=== PATIENT | male | born 1980 | race Caucasian/White ===

== ENCOUNTER 2017-06-25 22:24 | Emergency (ER) | payer OTHER ==
[~2017-06-25] VITALS: Ht 167.6 cm; Wt 81.0 kg
[~2017-06-25 22:24] MED LIST: GLUC500C3 PO; HYDR-3111 PO
[2017-06-25 22:51] VITALS: BP 186/101; PULSE 104; RESP 21; TEMP 98.3; O2SAT 98
--- NOTE | 2017-06-26 00:08 | PD ---
HPI Chief Complaint: Medical Clearance Time Seen by Provider: 23:59 Travel History International Travel<30 days: No Contact w/Intl Traveler<30days: No Traveled to known affect area: No History of Present Illness HPI 37-year-old male brought here by PD under [employer] act. According to the act the patient was extremely intoxicated and unable to care for himself. He is from out of town and was contacted by law enforcement as a passenger in a vehicle. The other occupant was arrested. The patient states that he and his dad were in a vehicle that was parked outside of a house. He admits that they did have some alcoholic beverages this evening because they had just closed on a property and were celebrating. On my assessment the patient states he feels well. No physical complaints. He is awake and alert and oriented to person place and time. PFSH Past Medical History Diminished Hearing: No Gout: Yes Hypertension: Yes Musculoskeletal: Yes (CHRONIC BACK PAIN) Influenza Vaccination: No Past Surgical History Surgical History: No Previous Surgery Social History Alcohol Use: Yes ("A LOT" ) Tobacco Use: No Substance Use: No Allergies-Medications (Allergen,Severity, Reaction): Coded Allergies: No Known Allergies (Unverified , 08/16/14) Reported Meds & Prescriptions Reported Meds & Active Scripts Active Reported Glucosamine (Glucosamine Sulfate) 500 Mg Cap 1,500 Mg PO DAILY Vicodin 5/300 (Hydrocodone/Acetaminophen 5/300) 5 Mg/300 Mg Tab 1 Tab PO Q4H PRN Review of Systems Except as stated in HPI: all other systems reviewed are Neg Physical Exam Narrative GENERAL: Well-developed, well-nourished, awake, alert, pleasant, no apparent distress. SKIN: Focused skin assessment warm/dry. HEAD: Atraumatic. Normocephalic. EYES: Pupils equal and round. No scleral icterus. No injection or drainage. ENT: No nasal bleeding or discharge. Mucous membranes pink and moist. NECK: Trachea midline. No JVD. CARDIOVASCULAR: Regular rate and rhythm. RESPIRATORY: No accessory muscle use. Clear to auscultation. Breath sounds equal bilaterally. GASTROINTESTINAL: Abdomen soft, non-tender, nondistended. Hepatic and splenic margins not palpable. MUSCULOSKELETAL: No obvious deformities. No clubbing. No cyanosis. No edema. NEUROLOGICAL: Awake and alert. No obvious cranial nerve deficits. Motor grossly within normal limits. Normal speech. PSYCHIATRIC: Appropriate mood and affect; insight and judgment normal. Data Data Last Documented VS Vital Signs Date Time Temp Pulse Resp B/P (MAP) Pulse Ox O2 Delivery O2 Flow Rate FiO2 06/26/17 00:21 87 20 134/88 (103) 99 06/25/17 22:51 98.3 Room Air Orders Orders Ed Discharge Order (06/26/17 00:08) MDM Medical Decision Making Medical Screen Exam Complete: Yes Emergency Medical Condition: Yes Differential Diagnosis alcohol intox Narrative Course This is a 37-year-old male who is brought in under [employer] act for alcohol intoxication. On my assessment the patient is awake and alert and oriented to person place and time. He admits to drinking some alcohol tonight. He is denying any physical complaints. He tells me he just wants to be discharged so he can take a cab to the place where his car was impounded so he can get his car. He says that he has a flight at 7:00 AM back to [place] for his son's 2- year-old birthday and does not want to miss this. In my opinion the patient is clinically sober and is able to care for himself. The [employer] act will be lifted and he will be discharged. Diagnosis Primary Impression: Alcohol intoxication Qualified Codes: F10.920 - Alcohol use, unspecified with intoxication, uncomplicated Referrals: Primary Care Physician 3 days Disposition: 01 DISCHARGE HOME Condition: Stable Jin Roman MD Jun 26, 2017 00:08
[2017-06-26 00:21] VITALS: BP 134/88
== END 2017-06-26 00:22 | disposition home or self-care (01) ==
LOC: NEDAMB 22:24 → NEPD 06-26 00:22
DX: F10.129 Alcohol abuse with intoxication, unspecified (principal); M10.9 Gout, unspecified; I11.0 Hypertensive heart disease with heart failure; Z79.899 Other long term (current) drug therapy
CPT/HCPCS: 99283